=== PATIENT | female | born 1975 | race Caucasian/White ===

== ENCOUNTER 2017-06-01 20:47 | Emergency (ER) | payer SELFPAY ==
[2017-06-02] MEDS: CEPHALEXIN 500 MG CAP PO (00:28)
[2017-06-02] MEDS: DIPHTH/TET/ACEL PERTUSS (ADULT) 0.5 ML VIAL IM* (00:30)
== END 2017-06-02 02:02 | disposition home or self-care (01) ==
LOC: FTE 20:47
DX: S02.2XXB Fracture of nasal bones, initial encounter for open fracture (principal); I10 Essential (primary) hypertension; W18.39XA Other fall on same level, initial encounter; Y92.9 Unspecified place or not applicable; Z23 Encounter for immunization
CPT/HCPCS: 70486; 90471; 90715; 99284-25